=== PATIENT | female | born 1950 | race Caucasian/White ===

== ENCOUNTER 2016-05-21 05:54 | Day surgery (SDC) | payer BC ==
--- NOTE | ~2016-05-21 | EGD ---
EGD REPORT [facility] [address] [address] NAME: LATIA SINGH : [birth year] STATUS : REG [facility]#: [id number] AGE: 66 ADM/REG DATE : 05/21/16 MR#: [id number] REPORT SERV DATE: 05/21/16 DICTATED BY: PAYTON SHIPMAN DATE: 05/21/16 REPORT STATUS : Draft TRANSCRIBED BY: [facility] DATE: 05/21/16 Endoscopy Center Patient Name: Latia Singh Date of : 1950 Attending MD: PAYTON SHIPMAN MD Procedure Date No Time: 05/21/2016 Procedure: Colonoscopy Indications: Screening for colorectal malignant neoplasm Referring MD: HERBERTH EARL Medicines: as per anesthesia Complications: No immediate complications. Procedure: Pre-Anesthesia Assessment: - ASA Grade Assessment: I - A normal, healthy patient. After I obtained informed consent, the scope was passed under direct vision. Throughout the procedure, the patient's blood pressure, pulse, and oxygen saturations were monitored continuously. The PCF [id number] was introduced through the anus and advanced to the cecum, identified by appendiceal orifice and ileocecal valve. The colonoscopy was performed without difficulty. The patient tolerated the procedure. The quality of the bowel preparation was adequate to identify polyps. Findings: The perianal and digital rectal examinations were normal. A sessile polyp was found in the distal sigmoid colon. The polyp was 30 mm in size. The polyp was removed with a hot snare. Resection and retrieval were complete. Impression: - One 30 mm polyp in the distal sigmoid colon. Resected and retrieved. Recommendation: - Await pathology results. - Repeat colonoscopy for surveillance based on pathology results. Procedure Code(s): --- Professional --- 13518, Colonoscopy, flexible, proximal to splenic flexure; with removal of tumor(s), polyp(s), or other lesion(s) by snare technique Diagnosis Code(s): --- Professional --- D12.5, Benign neoplasm of sigmoid colon Z12.11, Encounter for screening for malignant neoplasm of colon EGD REPORT [facility] [address] [address] NAME: LATIA SINGH : [birth year] [place]US [place] [facility] [place] [id number] AGE: 66 ADM/REG DATE : 05/21/16 MR#: [id number] REPORT SERV DATE: 05/21/16 DICTATED BY: PAYTON SHIPMAN. DATE: 05/21/16 REPORT STATUS : Draft TRANSCRIBED BY: [employer] DATE: 05/21/16 CPT copyright 2013 [employer]. All rights reserved. The codes documented in this report are preliminary and upon roller print tender review may be revised to meet current compliance requirements. PAYTON SHIPMAN MD 05/21/2016 8:17 AM This report has been signed electronically. Number of Addenda: 0 Note Initiated On: 05/21/2016 7:01 AM Scope Withdrawal Time 0 hours 55 minutes 47 seconds [id number] [id number]
[~2016-05-21 05:54] MED LIST: SEV VITAMINS; TUMERIC
[2016-08-20] MEDS ORDERED: SUPER B COMP PO (14:10)
[2016-08-20] MEDS ORDERED: FISH-EPA1000 MG PO (14:10)
[2016-08-20] MEDS ORDERED: VITAMIN D31000 UNIT PO (14:10)
[2016-08-20] MEDS ORDERED: MULTI-VIT HP PO (14:10)
[2016-08-20] MEDS ORDERED: VITE PO (14:11)
== END 2016-05-21 23:59 | disposition home or self-care (01) ==
LOC: DMU 05:54
PROVIDERS: Internal Medicine Gastroenterology
PROC: 0DBN8ZX Excision of Sigmoid Colon, Via Natural or Artificial Opening Endoscopic, Diagnostic (ICD-10-PCS; principal; 2016-05-21 07:00)
DX: Z12.11 Encounter for screening for malignant neoplasm of colon (principal); D12.5 Benign neoplasm of sigmoid colon; Z98.51 Tubal ligation status; Z98.890 Other specified postprocedural states
CPT/HCPCS: 88305; J2370